=== PATIENT | male | born 1940 | race Caucasian/White ===

== ENCOUNTER → 2018-11-21 | Outpatient (CLI) | payer MEDICARE ==
[~2018-11-21] MED LIST: ALDACTONE25 MG PO; ALLOPURINOL300 MG PO; ASPIRIN FOR CHI81 MG PO; BUMETANIDE1 MG PO; COZAAR25 M1 PO; DILTIAZEM HCL120 M1 PO; KLOR-CON M2020 ME1 PO; LOPRESSOR50 M1 PO; METOPROLOL SUCC25 M2 PO; OXYGEN NAS; PROVENTIL HFA6.7 GM INH; VITAMIN D5000 UNI1 PO; XARE20MG PO
== END | disposition home or self-care (01) ==
LOC: WOUNDCARE 02:58
DX: L89.892 Pressure ulcer of other site, stage 2 (principal); L89.510 Pressure ulcer of right ankle, unstageable; I10 Essential (primary) hypertension; I25.10 Atherosclerotic heart disease of native coronary artery without angina pectoris; J44.9 Chronic obstructive pulmonary disease, unspecified; E55.9 Vitamin D deficiency, unspecified; Z87.891 Personal history of nicotine dependence

== ENCOUNTER → 2018-12-05 | Outpatient (CLI) | payer MEDICARE | END | disposition home or self-care (01) | LOC: WOUNDCARE 00:45 | DX: L89.610 Pressure ulcer of right heel, unstageable (principal); L89.892 Pressure ulcer of other site, stage 2; I10 Essential (primary) hypertension; I25.10 Atherosclerotic heart disease of native coronary artery without angina pectoris; E55.9 Vitamin D deficiency, unspecified; J44.9 Chronic obstructive pulmonary disease, unspecified; E53.8 Deficiency of other specified B group vitamins; Z87.891 Personal history of nicotine dependence ==